=== PATIENT | female | born 1965 | race African-American/Black ===

== ENCOUNTER 2023-06-16 01:09 | Emergency (ER) | payer OTHER ==
[~2023-06-16] VITALS: Ht 157.5 cm; Wt 63.5 kg
[2023-06-16 01:22] VITALS: BP 140/79; PULSE 118; RESP 16; TEMP 97.1; O2SAT 97
[2023-06-16] MEDS ORDERED: FAMOTIDINE 20 MG TAB ONE (01:43)
[2023-06-16] MEDS ORDERED: DEXAMETHASONE 10 MG/ML VIAL ONE (01:43)
[2023-06-16] MEDS ORDERED: FAMOTIDINE 20 MG TAB PO ONE (01:45)
[2023-06-16] MEDS ORDERED: BENZ200C4 PO (03:29)
[2023-06-16] MEDS ORDERED: CETI10SG1 PO (03:29)
[2023-06-16] MEDS ORDERED: MUC600 PO (03:29)
[2023-06-16] MEDS ORDERED: BENZ-300 PO (03:29)
[2023-06-16 03:46] VITALS: BP 140/79; PULSE 90; RESP 16; TEMP 97.1; O2SAT 98
[2023-06-16 04:06] LABS: FLU A ANTIGEN POSITIVE (NEGATIVE); FLU B ANTIGEN NEGATIVE (NEGATIVE)
[2023-06-16] MEDS ORDERED: TAM75 PO (06:56)
== END 2023-06-16 03:46 | disposition home or self-care (01) ==
LOC: MED 01:09
DX: J06.9 Acute upper respiratory infection, unspecified (principal); J10.1 Influenza due to other identified influenza virus with other respiratory manifestations; Z20.822 Contact with and (suspected) exposure to COVID-19; E11.9 Type 2 diabetes mellitus without complications; Z79.899 Other long term (current) drug therapy
CPT/HCPCS: 87426; 87804; 99283; J1100

== ENCOUNTER 2023-09-23 17:06 | Emergency (ER) | payer OTHER ==
[~2023-09-23] VITALS: Ht 160 cm; Wt 63.0 kg
[~2023-09-23 17:06] MED LIST: BENZ-300 PO; BENZ200C4 PO; CETI10SG1 PO; MUC600 PO; TAM75 PO
[2023-09-23 18:30] VITALS: BP 132/88; PULSE 84; RESP 16; TEMP 97.7; O2SAT 99
[2023-09-23 19:21] LABS: BASOPHILS # (AUTO) 0.1 K/uL (0.00-0.22); BASOPHILS % (AUTO) 0.8 % (0.0-2.0); EOSINOPHILS # (AUTO) 0.2 K/uL (0-0.4); EOSINOPHILS % (AUTO) 3.1 % (0.0-4.0); HEMATOCRIT 40.6 % (36-48); HEMOGLOBIN 13.8 g/dL (12.0-16.0); LYMPHOCYTES % (AUTO) 38.9 % (20.5-51.1); MEAN CORPUSCULAR HEMOGLOBIN 31 pg (27-31); MEAN CORPUSCULAR HGB CONC 34 g/dL (33-37); MEAN CORPUSCULAR VOLUME 89.9 fL (80-94); MONOCYTES # (AUTO) 0.4 K/uL (0.8-1.0); MONOCYTES % (AUTO) 5.6 % (1.7-9.3); NEUTROPHILS % (AUTO) 51.6 % (42.2-75.2); PLATELET COUNT (AUTO) 257 K/uL (140-450); RED BLOOD CELL COUNT(AUTO) 4.52 MIL/uL (4.20-5.40); RED CELL DISTRIBUTION WIDTH 13.2 % (11.6-13.7); WHITE BLOOD COUNT (AUTO) 7.7 K/uL (4.8-10.8)
[2023-09-23 19:31] LABS: ANION GAP 12.9 (8-16); CALCIUM 9.2 mg/dL (8.5-10.1); CARBON DIOXIDE 27.7 mmol/L (21-32); CREATININE 0.7 mg/dL (0.6-1.3); POTASSIUM 3.6 mmol/L (3.5-5.1)
[2023-09-23 22:30] VITALS: O2SAT 99
[2023-09-23] MEDS ORDERED: NAPR-54 PO (23:01)
== END 2023-09-23 23:03 | disposition home or self-care (01) ==
LOC: MED 17:06
DX: M94.0 Chondrocostal junction syndrome [Tietze] (principal); E11.9 Type 2 diabetes mellitus without complications; Z79.4 Long term (current) use of insulin; Z79.899 Other long term (current) drug therapy
CPT/HCPCS: 36415; 71045; 80048; 84484; 85025; 93005; 99285